=== PATIENT | male | born 1960 | race Caucasian/White ===

== ENCOUNTER → 2020-11-07 | Outpatient (CLI) | payer BC ==
[~2020-11-07] MED LIST: ADVIL200 MG PO; ALEVE 220MG220 MG PO; ASPIRIN E.C. 8181 MG PO; BYDUREON SC; CARDI-OMEGA1000 MG PO; CARDURA 1MG1 MG PO; FARXIGA10 PO; FLOMAX 0.40.4 MG/CAP PO; GLUCOPHAGE1000 MG PO; GLUCOTROL 5M5 MG/TAB PO; HALLS5 MG MM; HCTZ 25MG TAB25 MG PO; HCTZ 25MG25 MG PO; JANUMET 1000 MG1 TAB PO; LANTUS100 U/ML SC; LIORESAL 1010 MG/TAB PO; LIPITOR 80MG80 MG PO; LISINOPRIL30 MG PO; NATURAL E400 IU PO; NORCO 325 MG-7.1 TAB PO; PANTOPRAZOLE40 MG PO; PROSCAR 5MG5 MG PO; PROTONIX 40MG T40 MG PO; VITORIN; ZESTRIL30 MG PO
== END ==
LOC: COL.RAD 13:53
DX: I70.0 Atherosclerosis of aorta (principal)
CPT/HCPCS: Q9967

== ENCOUNTER 2024-09-22 10:35 | Emergency (ER) | payer BC ==
[~2024-09-22] VITALS: Ht 177.8 cm; Wt 109.1 kg
[~2024-09-22 10:35] MED LIST changes: +CRUTCHES MC; +PERCOCET 325 MG1 TA2 PO
[2024-09-22] MEDS ORDERED: Lidocaine PF 2% (20 MG/ML) 5 ML VIAL ONE (11:37)
[2024-09-22] MEDS ORDERED: LR 1,000 ML IV SCH (11:45)
[2024-09-22 12:09] VITALS: TEMP 98
[2024-09-22] MEDS ORDERED: oxyCODONE/Acetaminophen 5-325 MG TAB PO ONE (14:45)
[2024-09-22 14:52] VITALS: BP 160/90; PULSE 88
--- NOTE | 2024-09-22 15:34 | NUR ---
silo worker met with patient and his sister as patient feels he cannot stay at his sister's home. Worker advised that we could explore fpc and that it would be private pay. Patient states that he cannot afford a fpc. Patient's sister states that patient could stay with his niece, Cheyenne roberts [phone] and confirms this with a phone call to Cheyenne. Patient states that she is familiar with his medications, has a one level home and several bedrooms. This plan is endorsed by patient and his sister. Worker collaborated with patient's nurse and ED physician regarding the above plan. Worker gave a referral to [employer], per patient's permission. 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
== END 2024-09-22 15:00 | disposition home or self-care (01) ==
LOC: COL.ER 10:35
DX: S82.891A Other fracture of right lower leg, initial encounter for closed fracture (principal); X58.XXXA Exposure to other specified factors, initial encounter
CPT/HCPCS: J2704; J7120